=== PATIENT | female | born 2000 | race American Indian/Alaskan Native ===

== ENCOUNTER 2022-03-27 11:03 | Emergency (ER) | payer BC ==
[2022-03-27 13:01] LABS: Hemoglobin 13.9 gm/dl (10.1-14.3); Mean Corpuscular HGB Conc 35 % (30-34); Mean Corpuscular Volume 92 fl (79-97); Platelet Count 268 K/mm3 (140-440); Red Blood Count 4.35 M/mm3 (3.65-5.03); Red Cell Distribution Width 12.5 % (13.2-15.2)
[2022-03-27 13:12] LABS: Basophils # (Auto) 0.1 K/mm3 (0.0-0.1); Basophils % (Auto) 0.9 % (0.0-1.8); Eosinophils % (Auto) 0.2 % (0.0-4.3); Lymphocytes # (Auto) 0.7 K/mm3 (1.2-5.4); Lymphocytes % (Auto) 9.4 % (13.4-35.0); Monocytes # (Auto) 0.3 K/mm3 (0.0-0.8); Monocytes % (Auto) 4.3 % (0.0-7.3)
[2022-03-27 13:20] LABS: Albumin 4.7 g/dL (3.9-5); Calcium 9.7 mg/dL (8.4-10.2)
[2022-03-27 13:59] LABS: HCG Qualitative,Urine Negative (Negative)
[2022-03-27 14:00] LABS: Bacteria,Urine 2+ /HPF (Negative)
[2022-03-27 14:25] LABS: Bilirubin,Urine Negative (Negative); Blood,Urine 2+ (Negative); Color,Urine Straw (Yellow); PH,Urine 7.5 (5.0-7.0); Urobilinogen,Urine < 2.0 mg/dL (<2.0)
--- NOTE | 2022-03-27 15:55 | Emergency Department Report ---
ED General Adult HPI - General Chief complaint: Nausea/Vomiting/Diarrhea Stated complaint: NAUSEA VOMITTING Time Seen by Provider: 03/27/22 15:46 Source: patient Mode of arrival: Ambulatory Limitations: No Limitations - History of Present Illness Initial comments: 21-year-old female no significant past medical history reports to the ER with complaints of nausea and vomiting that started this morning. Patient reports last night she felt a little nauseous after eating some nachos with chicken as well as a [employer] steak and cheese sandwich from a local restaurant. Patient denies any abdominal pain no diarrhea. Patient reports no other acute signs or symptoms at this time. Severity scale (0 -10): 0 - Related Data Previous Rx's Medication Instructions Recorded Last Taken Type Ondansetron [Zofran Odt] 4 mg PO Q12H PRN 3 Days #6 03/27/22 Unknown Rx tab.rapdis Allergies Allergy/AdvReac Type Severity Reaction Status Date / Time No Known Allergies Allergy Unverified 03/27/22 11:36 ED Review of Systems ROS: Stated complaint: NAUSEA VOMITTING Other details as noted in HPI Comment: All other systems reviewed and negative Gastrointestinal: nausea, vomiting. denies: abdominal pain, diarrhea ED Past Medical Hx - Past Medical History Previous Medical History?: No - Surgical History Past Surgical History?: No - Medications Home Medications: Home Medications Medication Instructions Recorded Confirmed Last Taken Type Ondansetron [Zofran Odt] 4 mg PO Q12H PRN 3 Days #6 03/27/22 Unknown Rx tab.rapdis ED Physical Exam - General Limitations: No Limitations General appearance: alert, in no apparent distress - Head Head exam: Present: atraumatic, normocephalic - Eye Eye exam: Present: normal appearance - ENT ENT exam: Present: mucous membranes moist - Neck Neck exam: Present: normal inspection - Respiratory Respiratory exam: Present: normal lung sounds bilaterally. Absent: respiratory distress - Cardiovascular Cardiovascular Exam: Present: regular rate, normal rhythm. Absent: systolic murmur, diastolic murmur, rubs, gallop - GI/Abdominal GI/Abdominal exam: Present: soft, normal bowel sounds. Absent: distended, tenderness, guarding, rebound - Extremities Exam Extremities exam: Present: normal inspection - Back Exam Back exam: Present: normal inspection - Neurological Exam Neurological exam: Present: alert, oriented X3 - Psychiatric Psychiatric exam: Present: normal affect, normal mood - Skin Skin exam: Present: warm, dry, intact, normal color. Absent: rash ED Course Vital Signs 03/27/22 03/27/22 11:36 16:58 Temperature 97.6 F 98.2 F Pulse Rate 62 61 Respiratory 20 16 Rate Blood Pressure 152/96 111/72 [Right] O2 Sat by Pulse 100 100 Oximetry ED Medical Decision Making - Lab Data Result diagrams: 03/27/22 12:24 03/27/22 12:24 - Medical Decision Making 21-year-old female with nausea and vomiting since this morning. Patient reports nausea after eating chicken nachos and a [employer] steak and cheese from a local restaurant last night. Patient denies abdominal pain no diarrhea. On physical exam no acute signs and symptoms noted no abdominal pain noted. Patient labs unremarkable with no significant acute process noted. Patient informed her symptoms are contributed to the food that she ate at the local restaurant as she started to having nausea right after eating food. Patient to get Zofran ODT while here in the ER. Patient will be sent home with Zofran ODT as needed for nausea and vomiting. Patient agrees with plan of care and verbalized understanding no further work-up is needed at this time. Vital Signs 03/27/22 11:36 Temperature 97.6 F Pulse Rate 62 Respiratory 20 Rate Blood Pressure 152/96 [Right] O2 Sat by Pulse 100 Oximetry Vital Signs 03/27/22 03/27/22 11:36 16:58 Temperature 97.6 F 98.2 F Pulse Rate 62 61 Respiratory 20 16 Rate Blood Pressure 152/96 111/72 [Right] O2 Sat by Pulse 100 100 Oximetry Labs 03/27/22 03/27/22 03/27/22 12:24 12:24 Unknown WBC 7.7 RBC 4.35 Hgb 13.9 Hct 40.0 MCV 92 MCH 32 MCHC 35 H RDW 12.5 L Plt Count 268 Lymph % (Auto) 9.4 L [place] % (Auto) 4.3 Eos % (Auto) 0.2 Baso % (Auto) 0.9 Lymph # (Auto) 0.7 L [place] # (Auto) 0.3 Eos # (Auto) 0.0 Baso # (Auto) 0.1 Seg Neutrophils % 85.2 H Seg Neutrophils # 6.7 Sodium 144 Potassium 3.9 Chloride 104.5 Carbon Dioxide 23 Anion Gap 20 BUN 14 Creatinine 1.3 H Estimated GFR 52 BUN/Creatinine Ratio 11 Glucose 118 H Calcium 9.7 Total Bilirubin 0.50 AST 25 ALT 11 Alkaline Phosphatase 51 Total Protein 8.3 H Albumin 4.7 Albumin/Globulin Ratio 1.3 Urine Color Straw Urine Turbidity Clear Urine pH 7.5 H Ur Specific [place] 1.005 Urine Protein 30 mg/dl Urine Glucose (UA) Negative Urine Ketones 5 Urine Blood 2+ Urine Nitrite Negative Ur Reducing Substances Not Reportable Urine Bilirubin Negative Urine Ictotest Not Reportable Urine Urobilinogen < 2.0 Ur Leukocyte Esterase Negative Urine WBC (Auto) 2.0 Urine RBC (Auto) 2.0 U Epithel Cells (Auto) 2.0 Urine Bacteria (Auto) 2+ Urine HCG, Qual Negative Critical care attestation.: If time is entered above; I have spent that time in minutes in the direct care of this critically ill patient, excluding procedure time. ED Disposition Clinical Impression: Gastroenteritis Nausea & vomiting Qualifiers: Vomiting type: unspecified Qualified Code(s): R11.2 - Nausea with vomiting, unspecified Disposition: 01 HOME / SELF CARE / HOMELESS Is pt being admited?: No Condition: Stable Instructions: Viral Gastroenteritis, Adult, Nausea and Vomiting, Adult Prescriptions: Ondansetron [Zofran Odt] 4 mg PO Q12H PRN 3 Days #6 tab.rapdis PRN Reason: Nausea And Vomiting Referrals: EUGENIO TORRES MD [Primary Care Provider] - 3-5 Days
[2022-03-27] MEDS ORDERED: ONDANSETRON 4 MG ODT TAB PO ONE (16:44)
[2022-03-27 17:00] VITALS: BP 111/72
== END 2022-03-27 16:58 | disposition home or self-care (01) ==
LOC: ED 11:03
DX: K52.9 Noninfective gastroenteritis and colitis, unspecified (principal); R11.2 Nausea with vomiting, unspecified
CPT/HCPCS: 36415; 80053; 81001; 81025; 85025; 99283; J3490; Q0162